=== PATIENT | female | born 1965 | race Caucasian/White ===

== ENCOUNTER → 2017-01-24 | Outpatient (CLI) | payer BC ==
[~2017-01-24] MED LIST: AZEL15GE TOP; BCPILLS PO; METR0.754 TOP; MULTTAB PO
--- NOTE | 2017-01-25 13:14 | MAMMOGRAPHY REPORT ---
BILATERAL DIGITAL SCREENING MAMMOGRAM TOMOSYNTHESIS WITH CAD: 01/24/2017 CLINICAL HISTORY: Routine screening examination. TECHNIQUE: Breast tomosynthesis in addition to standard 2D mammography was performed. Current study was also evaluated with a Computer Aided Detection (CAD) system. COMPARISON: Comparison is made to exams dated: 01/20/2016 mammogram, 01/14/2015 mammogram, 01/10/2014 sp ecimen, 01/10/2014 localization, 12/12/2013 stereotactic biopsy, and 12/04/2013 mammogram - [facility]. BREAST COMPOSITION: The tissue of both breasts is extremely dense, which lowers the sensitivity of m ammography. FINDINGS: Stable post surgical changes in the right breast. An asymmetry in the upper inner breast a ppears very similar to the 2011 and 2013 mammograms, therefore likely benign. No new suspicious mass , architectural distortion or cluster of suspicious microcalcifications is seen. IMPRESSION: ACR BI-RADS CATEGORY 1: NEGATIVE There is no mammographic evidence of malignancy. A 1 year screening mammogram is recommended. The pa tient will receive written notification of the results. Approximately 10% of breast cancers are not detected with mammography. A negative mammographic report should not delay biopsy if a clinically suggestive mass is present. Ruth Edwards M.D. ay/:01/24/2017 17:21:59 Control Systems Drafting Officer: Naima FERREIRA(Dereck)(M), [facility] letter sent: Normal 1/2 BI-RADS Code: ACR BI-RADS Category 1: Negative
== END | disposition home or self-care (01) ==
LOC: C.MAMM 16:12
PROVIDERS: ATTEND Obstetrics & Gynecology
DX: Z12.31 Encounter for screening mammogram for malignant neoplasm of breast (principal)

== ENCOUNTER 2017-08-05 08:53 | Emergency (ER) | payer BC ==
[~2017-08-05] VITALS: Ht 167.6 cm; Wt 62.1 kg
[2017-08-05 08:57] VITALS: TEMP 36.3; Ht 167.6 cm; Wt 62.1 kg
[2017-08-05] MEDS ORDERED: SODIUM CHLORIDE 0.9% 1000ML 1,000 ML IV STA (09:10)
[2017-08-05] MEDS ORDERED: ONDANSETRON INJ 2 MG/ML 2 ML VIAL IV STA (09:10)
[2017-08-05] MEDS ORDERED: MoRPHine SULFATE 4 MG/ML 1 ML CARP\\VIAL IV STA ×2 (09:10→10:21)
[2017-08-05] MEDS ORDERED: KETOROLAC TROMETHAMINE 30 MG/ML VIAL IV STA (09:10)
[2017-08-05 09:38] LABS: HEMATOCRIT 37.9 % (37-47); MEAN CORPUSCULAR HEMOGLOBIN 29.9 pg (25-34); MEAN CORPUSCULAR HGB CONC 33.2 g/dl (32-36); MEAN PLATELET VOLUME 10.1 fL (7.4-10.4); PLATELET COUNT 249 K/uL (130-400); RED BLOOD COUNT 4.21 M/uL (4.2-5.4); WHITE BLOOD COUNT 9.94 K/uL (4.8-10.8)
[2017-08-05 10:00] LABS: CALCIUM 8.3 mg/dl (8.5-10.1); CREATININE 1.11 mg/dl (0.60-1.20); POTASSIUM 4.1 mmol/L (3.5-5.1)
--- NOTE | 2017-08-05 10:08 | DIAGNOSTIC IMAGING REPORT ---
ABDOMEN AND PELVIS CT WITHOUT CONTRAST CT DOSE: 555.80 mGy.cm HISTORY: LEFT FLANK PAIN, HEMATURIA, HX OF STONES TECHNIQUE: Multiaxial CT images of the abdomen and pelvis were performed without the use of intravenous and oral contrast according to the standard department stone protocol. A dose lowering technique was utilized adhering to the principles of ALARA. COMPARISON STUDY: Abdomen and pelvis CT 05/20/2008. FINDINGS: There is a 2 mm subpleural nodule seen within the left lower lobe on image 19. The right lung base is clear. No suspicious lytic or blastic osseous lesions. The unenhanced liver, spleen, pancreas, gallbladder, and adrenal glands are unremarkable. No retroperitoneal lymphadenopathy. Punctate stone within the right kidney. No right-sided hydronephrosis. Mild left perinephric edema. There is also a few punctate stones within the left kidney. There is mild left hydroureteronephrosis secondary to an obstructing 4 mm stone in the distal left ureter. This is best seen on image 150. The bladder is decompressed but appears unremarkable. The uterus and bilateral adnexa are within normal limits. Suboptimal evaluation for bowel pathology due to the lack of intravenous and oral contrast. However, there is no definite bowel wall thickening or obstruction. Questionable thickening within a few of the small bowel loops within the midabdomen are likely due to underdistention. Colonic diverticulosis. Normal appendix. IMPRESSION: 1. A 4 mm obstructing stone within the distal left ureter resulting in mild left hydroureteronephrosis. 2. Bilateral nephrolithiasis. Electronically signed by: Tad Rubio M.D. 08/05/2017 10:06 AM Dictated Date/Time: 08/05/2017 10:00 AM
[2017-08-05] MEDS ORDERED: TAMSULOSIN HCL 0.4 MG CAP PO ONE (10:15)
[2017-08-05 11:44] LABS: URINE APPEARANCE CLEAR (CLEAR); URINE BILIRUBIN NEG (NEG); URINE COLOR YELLOW; URINE NITRITE NEG (NEG); URINE PH 7.5 (4.5-7.5); URINE SPECIFIC GRAVITY 1.011 (1.000-1.030); UROBILINOGEN NEG (NEG)
[2017-08-05 11:47] LABS: MANUAL MICROSCOPIC REQUIRED? NO; REVIEW REQ? NO
[2017-08-05 12:00] VITALS: BP 126/72; PULSE 57; O2SAT 95
[2017-08-05] MEDS ORDERED: TAMS0.4C38 PO (12:01)
[2017-08-05] MEDS ORDERED: OXYC1TAB3 PO (12:01)
[2017-08-05] MEDS ORDERED: ONDA4TAB10 SL (12:01)
--- NOTE | 2017-08-05 12:02 | EMERGENCY ROOM VISIT NOTE ---
ED Visit Note First contact with patient: 09:01 CHIEF COMPLAINT: Left flank pain 4 hours HISTORY OF PRESENT ILLNESS: Patient is a generally healthy 52-year-old white female who presents to emergency department from [facility] for evaluation of left flank pain. She states her symptoms started acutely around 5:00 this morning when she woke with left back pain radiating to her left lower abdomen. She reports associated nausea with vomiting times one, shakes, and hot and cold flashes with the severe pain. She took 400 mg of ibuprofen about 2 hours ago which has helped slightly with her pain, but she does report that it is worsening and rates it a 7/10 at the present time. She denies any dysuria, frequency or urgency. She denies feeling constipated, but reports bowel movements have been normal. She is on an oral contraceptive, her last menstrual period was about 4 weeks ago and menses is due on Monday. She denies any gynecologic history. She does have a history of kidney stones and states that this feels very similar. She was seen and [facility], where they did a urine dip which was positive for blood. They could not completely assess her due to her symptoms and thus referred her to the emergency department. REVIEW OF SYSTEMS: Review of systems as per HPI. All other systems reviewed were negative. 10 systems reviewed. PMH: Electronic medical records are reviewed and summarized as above/below. See Problem List. SOCIAL HISTORY: Patient lives at home with her family. Former smoker. PHYSICAL EXAM: Vital Signs: Reviewed Nurse's notes. CONSTITUTIONAL: Patient is a mildly uncomfortable appearing 52-year-old white female who is awake and alert and in no acute distress. EYES: Pupils equal, round, reactive to light and accommodation. EOMs intact without nystagmus. Sclera are anicteric. ENT: Tympanic membranes intact, with normal landmarks. External canals are clear. Oral and nasopharynx are clear. Mucous membranes are moist, no lesions , tongue and gums appear normal. CARDIOVASCULAR: Regular rate and rhythm, with normal S1 and S2, no murmur or gallop or rub is heard. No carotid bruits auscultated. No JVD. Peripheral pulses easily palpable. RESPIRATORY: Breath sounds equal and clear to auscultation without wheezes, rales, or rhonchi heard. Full and equal chest expansion without accessory muscle use or retractions. ABDOMEN: Bowel sounds are present. Abdomen is soft, scaphoid, nontender and nondistended. Positive left CVA tenderness. INTEGUMENTARY: No lesions or rash, normal skin turgor. LYMPH: No lymphadenopathy. EMERGENCY DEPARTMENT COURSE: The patient was seen and assessed as above. IV lock was initiated. She was hydrated with normal saline solution, medicated with Zofran 4 mg, morphine 4 mg and Toradol 30 mg IV. CBC, BMP and urinalysis were collected. A noncontrast CT scan of the abdomen and pelvis was obtained. Laboratory studies noted a normal white count at 9900, H&H is normal. Electrolytes are without significant abnormality. Renal function is normal. Urine microscopy noted 10-30 RBCs and 1+ occult blood,, otherwise urinalysis was clear. test was negative. CT scan of the abdomen and pelvis noted a 4 mm obstructing stone within the distal left ureter resulting in mild left hydroureteronephrosis, and bilateral nephrolithiasis. The patient received an additional morphine 4 mg IV when she returned from CT. She was later given Flomax 0.[address] scan findings were discussed with her. Conservative care measures were discussed. The patient rated her discomfort a 0/10 at discharge. She was given a urine strainer. He describes Flomax, Zofran and oxycodone for symptom management. Medication reconciliation: I attest that I have personally reviewed the patient' s current medication list. Blood pressure screening: Patient was found to have a slightly elevated blood pressure due to circumstances. I do not believe that the patient requires hypertension monitoring. Patient was reviewed in the [facility] Prescription Drug Monitoring Program, and there were no red flags noted. Differential diagnoses entertained included UTI, pyelonephritis, renal colic, constipation, bowel obstruction, perforation, diverticulitis, ovarian cyst, ovarian torsion, , ectopic , among others. ABDOMEN AND PELVIS CT WITHOUT CONTRAST CT DOSE: 555.80 mGy.cm HISTORY: LEFT FLANK PAIN, HEMATURIA, HX OF STONES TECHNIQUE: Multiaxial CT images of the abdomen and pelvis were performed without the use of intravenous and oral contrast according to the standard department stone protocol. A dose lowering technique was utilized adhering to the principles of ALARA. COMPARISON STUDY: Abdomen and pelvis CT 05/20/2008. FINDINGS: There is a 2 mm subpleural nodule seen within the left lower lobe on image 19. The right lung base is clear. No suspicious lytic or blastic osseous lesions. The unenhanced liver, spleen, pancreas, gallbladder, and adrenal glands are unremarkable. No retroperitoneal lymphadenopathy. Punctate stone within the right kidney. No right-sided hydronephrosis. Mild left perinephric edema. There is also a few punctate stones within the left kidney. There is mild left hydroureteronephrosis secondary to an obstructing 4 mm stone in the distal left ureter. This is best seen on image 150. The bladder is decompressed but appears unremarkable. The uterus and bilateral adnexa are within normal limits. Suboptimal evaluation for bowel pathology due to the lack of intravenous and oral contrast. However, there is no definite bowel wall thickening or obstruction. Questionable thickening within a few of the small bowel loops within the midabdomen are likely due to underdistention. Colonic diverticulosis. Normal appendix. IMPRESSION: 1. A 4 mm obstructing stone within the distal left ureter resulting in mild left hydroureteronephrosis. 2. Bilateral nephrolithiasis. Problem List Medical Problems: (1) Allergic reaction Status: Resolved (2) Hypertension Status: Resolved (3) Personal History Of Urinary Calculi Status: Resolved Surgical Problems: (1) Hx of section Status: Resolved Current/Historical Medications Scheduled Azelaic Acid (Finacea), 1 APPL TOP DAILY Control Pills ( Control Pills), 1 TAB PO DAILY Metronidazole Hcl (Metrocream), 1 APPLN TOP DAILY Multivitamins/Minerals (Mvi With Minerals), 1 TAB PO DAILY Tamsulosin Hcl (Flomax), 0.4 MG PO DAILY Scheduled PRN Ondasetron Odt (Zofran Odt), 4 MG SL Q6H PRN for Nausea or Vomiting Oxycodone Immediate Rel Tab (Roxicodone Ir), 1-2 TAB PO Q4H PRN for Severe Pain Allergies Coded Allergies: Carbamazepine (Verified Allergy, Intermediate, JAUNDICE SKIN PEELS, ) Phenobarbital (Verified Allergy, Intermediate, SKIN PEELS JAUNDICE, ) Phenytoin (Verified Allergy, Intermediate, JAUNDICE SKIN PELS, 08/05/17) Wheat (Verified Allergy, Mild, unk. per allergy testing, 08/05/17) Shrimp (Verified Allergy, Unknown, SHORTNESS OF BREATH,hives, 08/05/17) Uncoded Nonscreenable Allergen (Verified Allergy, Unknown, scallops per allergy testing, 08/05/17) Vital Signs Date Time Temp Pulse Resp B/P (MAP) Pulse Ox O2 Delivery O2 Flow Rate FiO2 08/05/17 12:00 57 16 126/72 95 Room Air 08/05/17 10:04 65 18 143/69 98 Room Air 08/05/17 08:57 36.3 70 16 150/85 100 Room Air Laboratory Results 08/05/17 09:23 08/05/17 09:23 Test 08/05/17 09:23 08/05/17 11:15 Red Blood Count 4.21 M/uL (4.2-5.4) Mean Corpuscular Volume 90.0 fL (80-100) Mean Corpuscular Hemoglobin 29.9 pg (25-34) Mean Corpuscular Hemoglobin Concent 33.2 g/dl (32-36) RDW Standard Deviation 42.4 fL (36.4-46.3) RDW Coefficient of Variation 12.9 % (11.5-14.5) Mean Platelet Volume 10.1 fL (7.4-10.4) Anion Gap 6.0 mmol/L (3-11) Est Creatinine Clear Calc Drug Dose 56.7 ml/min Estimated GFR () 67.1 Estimated GFR (Non- 57.9 BUN/Creatinine Ratio 15.0 (10-20) Calcium Level 8.3 mg/dl (8.5-10.1) Urine Color YELLOW Urine Appearance CLEAR (CLEAR) Urine pH 7.5 (4.5-7.5) Urine Specific [place] 1.011 (1.000-1.030) Urine Protein NEG (NEG) Urine Glucose (UA) NEG (NEG) Urine Ketones NEG (NEG) Urine Occult Blood 1+ (NEG) Urine Nitrite NEG (NEG) Urine Bilirubin NEG (NEG) Urine Urobilinogen NEG (NEG) Urine Leukocyte Esterase NEG (NEG) Urine WBC (Auto) 1-5 /hpf (0-5) Urine RBC (Auto) 10-30 /hpf (0-4) Urine Hyaline Casts (Auto) 1-5 /lpf (0-5) Urine Epithelial Cells (Auto) 5-10 /lpf (0-5) Urine Bacteria (Auto) NEG (NEG) Urine Test NEG (NEG) Medications Administered Medications (Trade) Dose Ordered Sig/Delbert Route Start Time Stop Time Status Last Admin Dose Admin Sodium Chloride 1,000 ml @ 999 mls/hr Q1H1M STAT IV 08/05/17 09:10 08/05/17 10:10 DC 08/05/17 09:28 999 MLS/HR Ketorolac Tromethamine (Toradol Inj) 30 mg NOW STAT IV 08/05/17 09:10 08/05/17 09:12 DC 08/05/17 09:27 30 MG Morphine Sulfate (MoRPHine SULFATE INJ) 4 mg NOW STAT IV 08/05/17 09:10 08/05/17 09:12 DC 08/05/17 09:27 4 MG Ondansetron HCl (Zofran Inj) 4 mg NOW STAT IV 08/05/17 09:10 08/05/17 09:12 DC 08/05/17 09:27 4 MG Tamsulosin HCl (Flomax Cap) 0.4 mg NOW ONCE PO 08/05/17 10:15 08/05/17 10:16 DC 08/05/17 10:25 0.4 MG Morphine Sulfate (MoRPHine SULFATE INJ) 4 mg NOW STAT IV 08/05/17 10:21 08/05/17 10:22 DC 08/05/17 10:26 4 MG Departure Information Impression Primary Impression: Left ureteral calculus Additional Impression: Left flank pain Prescriptions Ondasetron Odt (ZOFRAN ODT) 4 Mg Tab 4 MG SL Q6H Y for Nausea or Vomiting, #20 TAB Prov: Cecily Velasco PA 08/05/17 Oxycodone Immediate Rel Tab (ROXICODONE IR) 5 Mg Tab 1-2 TAB PO Q4H Y for Severe Pain, #25 TAB For Initial Treatment Prov: Cecily Velasco PA 08/05/17 Tamsulosin Hcl (FLOMAX) 0.4 Mg Cap 0.4 MG PO DAILY, #14 CAP Prov: Cecily Velasco PA 08/05/17 Referrals Warren Gutierrez M.D. (PCP) Patient Instructions My [facility] Additional Instructions DO NOT drive, drink alcohol, operate machinery, or perform dangerous activities today. You were given medications in the ER that can affect your ability to safely function or operate a vehicle. Oxycodone Immediate Release (OxyIR) 5mg: Take 1-2 pills every four hours for pain. Avoid alcohol, operating machinery or dangerous equipment, working on ladders or roofs, DRIVING, or situations where being under the influence may be dangerous. It is recommended to use an [id number] stool softener such as Colace, 100mg twice daily while taking this medication to avoid constipation. Zofran(odansetron) tablets 4mg: Take one and allow it to dissolve in your mouth every four to six hours as needed for nausea or vomiting. Flomax 0.4 m tablet daily until stone passes. Ibuprofen(Motrin, Advil) may be used for fever or pain. Use 600mg every six hours as needed. Take with food. Avoid using more than 2400mg in a 24 hour period. Do not use 2400mg per day for more than three consecutive days without physician direction. Prolonged inappropriate use can lead to stomach upset or ulcers. This medication can be taken if you need to drive, work, or perform activities which may be dangerous when taking narcotic pain medication. (AND/OR) Acetaminophen(Tylenol) may be used for fever or pain. Use 1000mg every six hours as needed. Avoid using more than 4000mg in a 24 hour period. This medication can be taken if you need to drive, work, or perform activities which may be dangerous when taking narcotic pain medication. Strain your urine and collect all the stones or debris for the urologists. Rest and avoid strenuous activity until your stone passes and symptoms resolve. Drink plenty of fluids. Continue current medications. Return to the ER for worsening abdominal or back pain, vomiting, fevers, passing out, or as needed. Follow up with your primary care physician next week for recheck. Problem Qualifiers
== END 2017-08-05 12:20 | disposition home or self-care (01) ==
LOC: C.EDB 08:54 → C.EDA 12:20
DX: N20.1 Calculus of ureter (principal); R10.9 Unspecified abdominal pain; I10 Essential (primary) hypertension; Z87.442 Personal history of urinary calculi; Z87.891 Personal history of nicotine dependence; Z98.891 History of uterine scar from previous surgery

== ENCOUNTER → 2017-11-02 | Outpatient (CLI) | payer BC ==
[~2017-11-02] MED LIST changes: +ONDA4TAB10 SL; +OXYC1TAB3 PO
== END | disposition home or self-care (01) ==
LOC: C.PAPS 09:21
PROVIDERS: ATTEND Obstetrics & Gynecology
DX: Z01.419 Encounter for gynecological examination (general) (routine) without abnormal findings (principal)